=== PATIENT | female | born 1995 | race Caucasian/White ===

== ENCOUNTER → 2018-05-05 | Outpatient (CLI) | payer OTHER ==
[~2018-05-05] MED LIST: HYDR-1231 PO
[2018-05-05 12:08] LABS: MEAN PLATELET VOLUME 9.1 FL (7.4-10.4); RED BLOOD COUNT 4.58 10^6/uL (4.35-5.85); RED CELL DISTRIBUTION WIDTH 12.2 % (10.0-14.5); WHITE BLOOD COUNT 6.3 10^3/uL (4.3-11.0)
[2018-05-05 12:21] LABS: ALANINE AMINOTRANSFERASE 20 U/L (0-55); ALBUMIN 4.7 GM/DL (3.2-4.5); ALKALINE PHOSPHATASE 55 U/L (40-136); BILIRUBIN,TOTAL 1.2 MG/DL (0.1-1.0); BUN/CREATININE RATIO 20; CALCIUM 9.9 MG/DL (8.5-10.1); CARBON DIOXIDE 23 MMOL/L (21-32); CHLORIDE 106 MMOL/L (98-107); CREATININE SERUM 0.75 MG/DL (0.60-1.30); GFR ESTIMATED > 60; GLUCOSE 87 MG/DL (70-105); POTASSIUM 4.4 MMOL/L (3.6-5.0); SODIUM 140 MMOL/L (135-145); TOTAL PROTEIN 7.7 GM/DL (6.4-8.2)
[2018-05-05 12:43] LABS: FREE T4 (FREE THYROXINE) 0.96 NG/DL (0.70-1.48)
== END ==
LOC: LAB 11:42
PROVIDERS: ATTEND Pediatrics
DX: R53.83 Other fatigue (principal)
CPT/HCPCS: 36415; 80053; 84439; 84443; 85027

== ENCOUNTER 2020-08-07 00:51 | Emergency (ER) | payer OTHER ==
[~2020-08-07] VITALS: Ht 162.6 cm; Wt 86.2 kg
[2020-08-07 01:36] LABS: BASOPHILS % (AUTO) 0 % (0-10); EOSINOPHILS # (AUTO) 0.1 10^3/uL (0.0-0.3); EOSINOPHILS % (AUTO) 1 % (0-10); HEMATOCRIT 43 % (35-52); HEMOGLOBIN 14.4 g/dL (11.5-16.0); LYMPHOCYTES # (AUTO) 2.6 10^3/uL (1.0-4.0); LYMPHOCYTES % (AUTO) 24 % (12-44); MEAN CORPUSCULAR HEMOGLOBIN 29 pg (25-34); MEAN CORPUSCULAR HGB CONC 34 g/dL (32-36); MEAN CORPUSCULAR VOLUME 87 fL (80-99); MEAN PLATELET VOLUME 9.4 fL (9.0-12.2); MONOCYTES # (AUTO) 0.7 10^3/uL (0.0-1.0); MONOCYTES % (AUTO) 7 % (0-12); NEUTROPHILS # (AUTO) 7.3 10^3/uL (1.8-7.8); NEUTROPHILS % (AUTO) 67 % (42-75); PLATELET COUNT 265 10^3/uL (130-400); WHITE BLOOD COUNT 10.8 10^3/uL (4.3-11.0)
[2020-08-07 01:53] LABS: ALBUMIN 4.6 GM/DL (3.2-4.5); CHLORIDE 105 MMOL/L (98-107); POTASSIUM 4.4 MMOL/L (3.6-5.0); SODIUM 139 MMOL/L (135-145)
[2020-08-07 01:55] LABS: GLUCOSE 121 MG/DL (70-105); TOTAL PROTEIN 8.7 GM/DL (6.4-8.2)
[2020-08-07 01:56] LABS: CARBON DIOXIDE 18 MMOL/L (21-32)
[2020-08-07] MEDS ORDERED: LACTATED RINGERS 1,000 ML IV ONE ×2 (01:56→02:00)
[2020-08-07 01:57] LABS: BILIRUBIN,TOTAL 0.4 MG/DL (0.1-1.0)
[2020-08-07 01:59] LABS: ALKALINE PHOSPHATASE 75 U/L (40-136); CREATININE SERUM 0.98 MG/DL (0.60-1.30); GFR ESTIMATED > 60
[2020-08-07 02:00] LABS: BUN/CREATININE RATIO 18
[2020-08-07 02:02] LABS: ALANINE AMINOTRANSFERASE 33 U/L (0-55)
[2020-08-07] MEDS ORDERED: HOLD METFORMIN - RECEIVED CONTRAST 20 ML VIAL IV SCH (03:15)
[2020-08-07] MEDS ORDERED: IOHEXOL 350 MG/ML 100 ML (OMNIPAQUE 350) VIAL IV ONE (03:15)
[2020-08-07] MEDS ORDERED: CATHETER FLUSH 10 ML SYR IV PRN (03:15)
[2020-08-07] MEDS ORDERED: NS 100 ML (IVPB) BAG IV ONE (03:15)
[2020-08-07] MEDS ORDERED: AZIT250T12 PO (03:35)
--- NOTE | 2020-08-07 03:36 | ED General ---
General Chief Complaint: Chest Pain Stated Complaint: COVID+ LAST MONDAY,CP,PULSE RACING Nursing Triage Note: PT AMBULATES TO ROOM #9 WITH C/O CHEST DISCOMFORT, HIGH BLOOD PRESSURE, ET HIGH PULSE RATE. REPORTS SHE TESTED + FOR COVID-19 ON 08/05/19 ET BEGAN TO EXPERIENCE S/S ON 08/04/19. 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 REPORTS DECREASED FLUID INTAKE. DENIES FEVER, CHILLS, COUGH, OR SOA, A&OX4. Nursing Sepsis Screen: Possible Severe Sepsis Risk Source of Information: Patient Exam Limitations: No Limitations History of Present Illness Date Seen by Provider: Aug 07, 2020 Time Seen by Provider: 00:59 Initial Comments Patient is being seen this morning primarily for shortness of breath, chest discomfort, and tachycardia in the context of COVID-19. She has been ill for about a week. She denies vomiting or diarrhea. Allergies and Home Medications Allergies Coded Allergies: No Known Drug Allergies (Unverified , 01/19/14) Home Medications Azithromycin 250 Mg Tablet, 250 MG PO UD TAKE 2 TABLETS ON DAY ONE THEN TAKE 1 TABLET DAILY FOR FOUR MORE DAYS Prescribed by: ANG HOLLINGSWORTH on 08/07/20 0335 Hydrocodone Bit/Acetaminophen 1 Tab Tablet, 1 TAB PO Q6H PRN for PAIN Prescribed by: PATRICE DURANT on 01/19/14 1422 Patient Home Medication List Home Medication List Reviewed: Yes Review of Systems Review of Systems Constitutional: see HPI EENTM: no symptoms reported Respiratory: see HPI Cardiovascular: see HPI Gastrointestinal: no symptoms reported Genitourinary: no symptoms reported Musculoskeletal: no symptoms reported Skin: no symptoms reported Psychiatric/Neurological: No Symptoms Reported Hematologic/Lymphatic: No Symptoms Reported Immunological/Allergic: no symptoms reported Past Xamqcqk-Slloyl-Ummhna Hx Past Med/Social Hx: Reviewed Nursing Past Med/Soc Hx Patient Social History Alcohol Use: Denies Use Smoking Status: Never a Smoker 2nd Hand Smoke Exposure: No Recent Infectious Disease Expo: No Past Medical History Surgeries: Yes (dental) Respiratory: No Cardiac: No Neurological: No Reproductive Disorders: No Sexually Transmitted Disease: No Genitourinary: No Gastrointestinal: No Musculoskeletal: No Endocrine: No Cancer: No Psychosocial: No Integumentary: No Physical Exam Vital Signs Vital Signs - First Documented Capillary Refill : Less Than 3 Seconds Height, Weight, BMI Height: 5'6" Weight: 130lbs. oz. 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 Norm as Tested Progress/Results/Core Measures Suspected Sepsis Recent Fever Within 48 Hours: No Infection Criteria Present: Documented Infection New/Unexplained Altered Menta: No Sepsis Screen: Possible Severe Sepsis Risk SIRS Temperature: Pulse: 125 Respiratory Rate: 18 Laboratory Tests 08/07/20 01:25: White Blood Count 10.8 Blood Pressure 151 /84 Mean: 106 Laboratory Tests 08/07/20 01:25: Creatinine 0.98, Platelet Count 265, Total Bilirubin 0.4 Results/Orders Lab Results Laboratory Tests Test 08/07/20 01:25 Range/Units White Blood Count 10.8 4.3-11.0 10^3/uL Red Blood Count 4.93 3.80-5.11 10^6/uL Hemoglobin 14.4 11.5-16.0 g/dL Hematocrit 43 35-52 % Mean Corpuscular Volume 87 80-99 fL Mean Corpuscular Hemoglobin 29 25-34 pg Mean Corpuscular Hemoglobin Concent 34 32-36 g/dL Red Cell Distribution Width 11.9 10.0-14.5 % Platelet Count 265 130-400 10^3/uL Mean Platelet Volume 9.4 9.0-12.2 fL Immature Granulocyte % (Auto) 1 % Neutrophils (%) (Auto) 67 42-75 % Lymphocytes (%) (Auto) 24 12-44 % Monocytes (%) (Auto) 7 0-12 % Eosinophils (%) (Auto) 1 0-10 % Basophils (%) (Auto) 0 0-10 % Neutrophils # (Auto) 7.3 1.8-7.8 10^3/uL Lymphocytes # (Auto) 2.6 1.0-4.0 10^3/uL Monocytes # (Auto) 0.7 0.0-1.0 10^3/uL Eosinophils # (Auto) 0.1 0.0-0.3 10^3/uL Basophils # (Auto) 0.0 0.0-0.1 10^3/uL Immature Granulocyte # (Auto) 0.1 0.0-0.1 10^3/uL D-Dimer 0.68 H 0.00-0.49 UG/ML Sodium Level 139 135-145 MMOL/L Potassium Level 4.4 3.6-5.0 MMOL/L Chloride Level 105 98-107 MMOL/L Carbon Dioxide Level 18 L 21-32 MMOL/L Anion Gap 16 H 5-14 MMOL/L Blood Urea Nitrogen 18 7-18 MG/DL Creatinine 0.98 0.60-1.30 MG/DL Estimat Glomerular Filtration Rate > 60 BUN/Creatinine Ratio 18 Glucose Level 121 H 70-105 MG/DL Calcium Level 11.0 H 8.5-10.1 MG/DL Corrected Calcium 8.5-10.1 MG/DL Total Bilirubin 0.4 0.1-1.0 MG/DL Aspartate Amino Transf (AST/SGOT) 27 5-34 U/L Alanine Aminotransferase (ALT/SGPT) 33 0-55 U/L Alkaline Phosphatase 75 40-136 U/L Lactate Dehydrogenase 290 H 125-220 U/L Troponin I < 0.028 <0.028 NG/ML C-Reactive Protein High Sensitivity 0.49 0.00-0.50 MG/DL Total Protein 8.7 H 6.4-8.2 GM/DL Albumin 4.6 H 3.2-4.5 GM/DL Procalcitonin 0.01 <0.10 NG/ML Serum Test, Qualitative NEGATIVE NEGATIVE My Orders Orders - ANG SCOTT MD Fibrin Degradation Products (08/07/20 00:59) Procalcitonin (Pct) (08/07/20 00:59) Hs C Reactive Protein (08/07/20 00:59) LDH (08/07/20 00:59) Hcg,Qualitative Serum (08/07/20 00:59) Ed Iv/Invasive Line Start (08/07/20 00:59) Monitor-Rhythm Ecg Trace Only (08/07/20 00:59) Cbc With Automated Diff (08/07/20 00:59) Comprehensive Metabolic Panel (08/07/20 00:59) Chest 1 View, Ap/Pa Only (08/07/20 01:26) Troponin I (08/07/20 01:58) Ed Iv/Invasive Line Start (08/07/20 01:58) Lactated Ringers (Lr 1000 Ml Iv Solution (08/07/20 02:00) Lactated Ringers (Lr 1000 Ml Iv Solution (08/07/20 01:56) Ct Angio Chest W (08/07/20 02:27) Iohexol Injection (Omnipaque 350 Mg/Ml 1 (08/07/20 03:15) Received Contrast (Hold Metformin- Contr (08/07/20 03:15) Sodium Chloride Flush (Catheter Flush Sy (08/07/20 03:15) Ns (Ivpb) (Sodium Chloride 0.9% Ivpb Bag (08/07/20 03:15) Medications Given in ED Current Medications Medications Dose Ordered Sig/Marly Route Start Time Stop Time Status Last Admin Dose Admin Iohexol 100 ml ONCE ONCE IV 08/07/20 03:15 08/07/20 03:16 DC 08/07/20 03:08 90 ML Lactated Ringer's 1,000 ml @ 0 mls/hr Q0M ONCE IV 08/07/20 02:00 08/07/20 02:01 DC 08/07/20 02:07 0 MLS/HR Sodium Chloride 10 ml NEEDED PRN IV 08/07/20 03:15 08/07/20 03:55 DC 08/07/20 03:08 10 ML Sodium Chloride 100 ml ONCE ONCE IV 08/07/20 03:15 08/07/20 03:16 DC 08/07/20 03:08 80 ML Vital Signs/I&O 08/07/20 08/07/20 08/07/20 01:10 01:10 03:50 Temp 35.9 35.9 Pulse 125 94 Resp 18 17 B/P (MAP) 151/84 (106) 134/81 (106) Pulse Ox 100 99 O2 Delivery Room Air Room Air Room Air Capillary Refill : Less Than 3 Seconds Blood Pressure Mean: 106 Progress Note : Progress Note Patient received a liter of IV fluid. D-dimer was elevated. CT angiogram was obtained which revealed infiltrate in the right lower lung. This is possibly related to pneumonia. A azithromycin was prescribed. ECG Initial ECG Impression Date: Aug 07, 2020 Initial ECG Impression Time: 01:14 Initial ECG Rate: 119 Initial ECG Rhythm: S.Tach Comment Sinus tachycardia with no ST elevation or depression. No abnormal intervals or axis deviation. Diagnostic Imaging Diagonstic Imaging: Xray Plain Films/CT/US/NM/MRI: chest Comments Chest x-ray viewed by me and report reviewed. See report below: NAME: SONJA BLANC [facility] REC#: [id number] PT STATUS: DEP ER : 1995 PHYSICIAN: ANG SCOTT MD ADMIT DATE: 08/07/20/ER Draft Date of Exam:08/07/20 CHEST 1 VIEW, AP/PA ONLY EXAMINATION: AP upright portable chest INDICATION: Chest pain and shortness of breath in patient who is positive for COVID-19. COMPARISON: None available. FINDINGS: Mild reticular and hazy opacities are demonstrated in the right lung base. The lungs are otherwise clear. Pulmonary vasculature is normal. No pneumothorax or large pleural effusion. Heart size and mediastinal contours are normal. No acute osseous abnormality is identified. IMPRESSION: Mild airspace disease in the right lung base is favored to represent atypical infection related to patient's COVID-19 diagnosis. Dictated on workstation # [id number] Dict: 08/07/20 0539 Trans: 08/07/20 0543 HOLLY [id number] Interpreted by: DARIN ROSADO DO Diagonstic Imaging: CT Plain Films/CT/US/NM/MRI: chest Comments CT angiogram of the chest viewed by me and stat rad report reviewed. No pulmonary emboli. Consolidated infiltrate in the right lower lung suggestive of pneumonia. Departure Impression Primary Impression: COVID-19 Additional Impressions: Chest pain Qualified Codes: R07.9 - Chest pain, unspecified Pulmonary infiltrate Disposition: 01 HOME, SELF-CARE Condition: Improved Departure-Patient Inst. Decision time for Depature: 03:32 Referrals: NO,LOCAL PHYSICIAN (PCP/Family) Primary Care Physician Patient Instructions: Coronavirus Disease 2019 (COVID-19) (DC) Add. Discharge Instructions: Drink plenty of clear liquids to stay well-hydrated. You may take ibuprofen up to 600 mg every 6 hours and/or Tylenol (acetaminophen) up to 1000 mg every 6 hours as needed for fever or pain. Complete your antibiotic as prescribed. Allow yourself a few more days to recover before returning to contact with the general public. You may resume work and school in a week as anticipated as long as your symptoms continue to improve. Call with questions or concerns. Return to the ER with worsening symptoms. All discharge instructions reviewed with patient and/or family. Voiced understanding. Scripts Azithromycin (Azithromycin) 250 Mg Tablet 250 MG PO UD, #6 TAB TAKE 2 TABLETS ON DAY ONE THEN TAKE 1 TABLET DAILY FOR FOUR MORE DAYS Prov: ANG SCOTT MD 08/07/20 ANG SCOTT MD Aug 07, 2020 03:36
[2020-08-07 03:50] VITALS: BP 134/81
--- NOTE | 2020-08-07 05:44 | Diagnostic Imaging Report ---
EXAMINATION: AP upright portable chest INDICATION: Chest pain and shortness of breath in patient who is positive for COVID-19. COMPARISON: None available. FINDINGS: Mild reticular and hazy opacities are demonstrated in the right lung base. The lungs are otherwise clear. Pulmonary vasculature is normal. No pneumothorax or large pleural effusion. Heart size and mediastinal contours are normal. No acute osseous abnormality is identified. IMPRESSION: Mild airspace disease in the right lung base is favored to represent atypical infection related to patient's COVID-19 diagnosis. Dictated by: Dictated on workstation # [id number]
--- NOTE | 2020-08-07 06:57 | Diagnostic Imaging Report ---
PROCEDURE: CT angiography of the chest with contrast. TECHNIQUE: Multiple contiguous axial images were obtained through the chest after uneventful bolus administration of intravenous contrast. 3D reconstructed CTA MIP acquisitions were also performed. Auto Exposure Controls were utilized during the CT exam to meet ALARA standards for radiation dose reduction. INDICATION: COVID 19 positive. Chest pain and shortness of breath. Evaluate for pulmonary embolism. COMPARISONS: Chest radiograph performed same day. FINDINGS: CT ANGIOGRAM: Suboptimal contrast bolus limits evaluation beyond the central pulmonary arteries. There is no large central pulmonary embolism. Normal caliber pulmonary arteries. No acute aortic abnormality seen on this study performed without cardiac gating. TRACHEA AND MAIN BRONCHI: Patent without evidence of tracheal or endobronchial lesion. LUNGS AND PLEURA: Scattered alveolar and groundglass opacity is demonstrated in the posterior aspect of the right lower lobe. The lungs are otherwise clear. No pleural effusion or pneumothorax. MEDIASTINUM AND KRISTINA: Visualized thyroid gland is normal. No mediastinal or hilar lymphadenopathy. Esophagus is nondistended. HEART AND VESSELS: Heart is normal in size. No pericardial effusion. Thoracic aorta is nonaneurysmal. DIAPHRAGM AND UPPER ABDOMEN: Unremarkable. CHEST WALL: Unremarkable. BONES: No acute osseous abnormality. IMPRESSION: 1. Evaluation is markedly limited due to suboptimal contrast bolus. There is no central pulmonary embolism. 2. Alveolar and groundglass opacities are demonstrated in the right lower lobe. Although in a typical location for dependent atelectasis, this is favored to reflect infection, especially given patient's positive COVID 19 status. Findings are in agreement with initial teleradiology report. Dictated by: Dictated on workstation # [id number]
== END 2020-08-07 03:50 | disposition home or self-care (01) ==
LOC: EDUNIT# 00:51 → ER 00:56
DX: U07.1 COVID-19 (principal); R91.8 Other nonspecific abnormal finding of lung field
CPT/HCPCS: 36415; 71045; 71275; 80053; 83615; 84145; 84484; 84703; 85025; 85379; 86141; 93005; 93041

== ENCOUNTER 2020-09-12 23:19 | Emergency (ER) | payer OTHER ==
[~2020-09-12] VITALS: Ht 167.7 cm; Wt 87.0 kg
[~2020-09-12 23:19] MED LIST changes: +AZIT250T12 PO
--- NOTE | 2020-09-12 23:53 | ED General ---
General Chief Complaint: Cardiac/General Problems Stated Complaint: HIGH BLOOD PRESSURE Nursing Triage Note: PATIENT ARRVES THIS EVENING STATING SHE HAS STARTED LISINOPRIL 10MG 2 WEEKS AGO BY HER REGULAR PHYSICIAN IN [place] [address] [place]. AT THAT APPOINTMENT SHE WAS ASKED TO RECORD HER BLOOD PRESSURE TWO TIMES PER DAY. WHEN RECORDING HER EVENING BLOOD PRESSURE SHE NOTICED IT WAS HIGH SO SHE CAME TO GET CHECKED OUT. DENIES CP, SOB, FEVER, CHILLS, ABD PAIN, N/V/D. CALL LIGHT IN REACH, MONITORING MAINTAINED. VERBGABINOELAYNE SHE HAD COVID IN JULY, CURRENTLY DENIES ANY REMAINING SYMPTOMS. Nursing Sepsis Screen: No Definite Risk Source of Information: Patient Exam Limitations: No Limitations History of Present Illness Date Seen by Provider: Sep 12, 2020 Time Seen by Provider: 11:35 Initial Comments Patient is a 25-year-old female who presents to the emergency department today with a chief complaint of concern for elevated blood pressure. Patient states that she was recently diagnosed with hypertension and started on 10 mg lisinopril tablets about 2 weeks ago. Patient was told to keep a blood pressure diary and take her blood pressures twice daily. Patient states that this evening she took her blood pressure and it was quite elevated to a maximum of 175/105. Patient states at that time she had a moderate headache and it felt like a heartbeat in her head. Patient states that she is not having any other symptoms of chest pain, shortness of breath, abdominal pain, urinary complaints, strokelike symptoms. Patient denies any recent illnesses. She states that she has a history of seasonal allergies and gets quite congested. Patient denies any excessive salt intake rate recently. No recent increased stress at work or home. Patient tells me that she has a follow-up appointment with her primary care provider on Monday, 2 days from now. All other review of systems reviewed and negative except as stated. Timing/Duration: 1 Hour Severity: Moderate Associated Systoms: Denies Symptoms Allergies and Home Medications Allergies Coded Allergies: No Known Drug Allergies (Unverified , 01/19/14) Home Medications Azithromycin 250 Mg Tablet, 250 MG PO UD TAKE 2 TABLETS ON DAY ONE THEN TAKE 1 TABLET DAILY FOR FOUR MORE DAYS Prescribed by: ANG HOLLINGSWORTH on 08/07/20 0335 Hydrocodone Bit/Acetaminophen 1 Tab Tablet, 1 TAB PO Q6H PRN for PAIN Prescribed by: PATRICE DURANT on 01/19/14 1422 Patient Home Medication List Home Medication List Reviewed: Yes Review of Systems Review of Systems Constitutional: see HPI EENTM: no symptoms reported Respiratory: no symptoms reported Cardiovascular: no symptoms reported Gastrointestinal: no symptoms reported Genitourinary: no symptoms reported : No Musculoskeletal: no symptoms reported Skin: no symptoms reported All Other Systems Reviewed Negative Unless Noted: Yes Past Vumfhnm-Evgtsd-Ccxyut Hx Patient Social History Alcohol Use: Denies Use 2nd Hand Smoke Exposure: No Recent Infectious Disease Expo: No (COVID JUL 2020) Immunizations Up To Date Tetanus Booster (TDap): Less than 5yrs PED Vaccines UTD: Yes Seasonal Allergies Seasonal Allergies: Yes Past Medical History Surgeries: Yes (dental) Respiratory: No Cardiac: Yes Hypertension Neurological: No Hx : 0 Hx Para: 0 Hx Total # of Abortions (Sp): 0 Reproductive Disorders: No Sexually Transmitted Disease: No Genitourinary: No Gastrointestinal: No Musculoskeletal: No Endocrine: No HEENT: No Cancer: No Psychosocial: No Integumentary: No Physical Exam Vital Signs Vital Signs - First Documented 09/12/20 23:20 Temp 36.8 Pulse 99 Resp 18 B/P (MAP) 153/108 (123) Pulse Ox 98 Capillary Refill : Less Than 3 Seconds Height, Weight, BMI Height: 5'6" Weight: 130lbs. oz. 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 Norm as Tested Skin: Normal Color, Warm/Dry Progress/Results/Core Measures Suspected Sepsis Recent Fever Within 48 Hours: No Infection Criteria Present: None New/Unexplained Altered Menta: No Sepsis Screen: No Definite Risk SIRS Temperature: Pulse: 99 Respiratory Rate: 18 Blood Pressure 153 /108 Mean: 108 Results/Orders Vital Signs/I&O 09/12/20 09/12/20 23:20 23:43 Temp 36.8 Pulse 99 Resp 18 B/P (MAP) 153/108 (123) 141/91 (108) Pulse Ox 98 Capillary Refill : Less Than 3 Seconds Blood Pressure Mean: 108 Progress Note : Time: 23:50 Progress Note 25-year-old female presents with concerns for elevated blood pressure. Evaluation today includes a physical exam. Patient's blood pressure is in the 140s over low 90s at the time of my evaluation. Patient has no clinical or objective findings to warrant further investigation in the emergency department at this time. She has no signs of endorgan damage. No concern at this time for hypertensive emergency. Patient has good follow-up 2 days from now with her primary care physician. I have advised her to continue her lisinopril 10 mg tablets. She verbalizes understanding. All questions are sought and answered. Patient is stable for discharge. Departure Impression Primary Impression: Essential hypertension Disposition: 01 HOME, SELF-CARE Condition: Stable Departure-Patient Inst. Decision time for Depature: 23:52 Referrals: NO,LOCAL PHYSICIAN (PCP/Family) Primary Care Physician Patient Instructions: High Blood Pressure in Adults Add. Discharge Instructions: Continue your blood pressure medicines as directed. Return to the emergency room for any worsening symptoms, chest pain, severe headache or other emergent concerns. ARCELIA HAYNES MD Sep 12, 2020 23:53
[2020-09-13 00:04] VITALS: BP 120/74
== END 2020-09-13 00:05 | disposition home or self-care (01) ==
LOC: EDUNIT# 23:19 → ER 23:21
DX: I10 Essential (primary) hypertension (principal)
CPT/HCPCS: 99283